=== PATIENT | male | born 1975 | race Hispanic/Latino ===

== ENCOUNTER 2021-08-23 15:51 | Day surgery (SDC) | payer BC ==
[~2021-08-23] VITALS: Ht 165.1 cm; Wt 89.5 kg
[2021-08-23 10:40] VITALS: BP 141/72
[2021-08-23 10:54] LABS: BASOPHILS % (AUTO) 1.4 % (0.0-5.0); EOSINOPHILS % (AUTO) 8.3 % (0.0-8.0); HEMATOCRIT 46.1 % (42-54); LYMPHOCYTES % (AUTO) 27.6 % (21.0-51.0); MEAN CORPUSCULAR HEMOGLOBIN 28.4 pg (27.0-33.0); MEAN CORPUSCULAR HGB CONC 32.1 g/dL (32.0-36.0); MEAN CORPUSCULAR VOLUME 88.3 fL (79-99); MONOCYTES % (AUTO) 14.8 % (3.0-13.0); NEUTROPHILS % (AUTO) 47.4 % (40.0-77.0); PLATELET COUNT (AUTO) 248 K/uL (130-400); RED BLOOD CELL COUNT(AUTO) 5.22 MIL/uL (4.50-6.20); RED CELL DISTRIBUTION WIDTH 11.9 % (11.0-15.5); WHITE BLOOD COUNT (AUTO) 7.4 K/uL (4.8-10.8)
[2021-08-23 10:57] LABS: CREATININE 1.1 mg/dL (0.5-1.5); POTASSIUM 3.9 mmol/L (3.5-5.1)
[~2021-08-23 15:51] MED LIST: CEFAZOLIN SODIUM 1 GM VIAL IVP SCH
[2021-08-26] VITALS (13 sets, daily range): BP systolic 91–126; BP diastolic 54–87
[2021-08-26] MEDS: 0.9%NACL 1000ML 1,000 ML IV SCH ×2 (11:26→15:03)
[2021-08-26] MEDS ORDERED: CEFAZOLIN SODIUM 1 GM VIAL ONE (11:27)
[2021-08-26] MEDS ORDERED: ONDANSETRON 4MG INJ ONE (13:44)
[2021-08-26] MEDS ORDERED: BUPIVACAINE/PF 0.25% 30ML VIAL IJ ONE (13:44)
[2021-08-26] MEDS ORDERED: DEXAMETHASONE SOD PHOSPHATE 10MG/ML 1ML VIAL ONE (13:44)
[2021-08-26] MEDS ORDERED: MIDAZOLAM HCL 1 MG/ML 2ML VIAL ONE (13:44)
[2021-08-26] MEDS ORDERED: NEOSTIGMINE 5MG/5ML SYR IV ONE (13:44)
[2021-08-26] MEDS ORDERED: LIDOCAINE PF 100MG/5ML (2%) SYRINGE 5ML ONE ×2 (13:44→13:45)
[2021-08-26] MEDS ORDERED: ROCURONIUM 10MG/1ML SYR 10 MG/ML ML ONE (13:44)
[2021-08-26] MEDS ORDERED: SUCCINYLCHOLINE CHLORIDE 20 MG/ML 10 ML VIAL ONE ×2 (13:44→13:45)
[2021-08-26] MEDS ORDERED: PROPOFOL 10 MG/ML 20ML VIAL IV ONE ×2 (13:44→14:25)
[2021-08-26] MEDS ORDERED: GLYCOPYRROLATE 1 MG/5 ML SYRINGE ONE (13:44)
[2021-08-26] MEDS ORDERED: FENTANYL CITRATE PF 50 MCG/1 ML 2ML VIAL ONE (13:45)
[2021-08-26] MEDS ORDERED: LIDOCAINE HCL 2% PF 20 ML JEL DISP.SYRIN MM ONE (13:45)
== END 2021-08-26 16:30 | disposition home or self-care (01) ==
LOC: DAH 15:51 → UNDOADMOB 08-26 10:03 → DAHIP 08-26 10:03 → EDSTATUS 08-26 10:50 → DAH 08-26 16:30
PROVIDERS: ATTEND Student in an Organized Health Care Education/Training Program
DX: K60.3 Anal fistula (principal); Z20.822 Contact with and (suspected) exposure to COVID-19; Z82.49 Family history of ischemic heart disease and other diseases of the circulatory system; Z83.3 Family history of diabetes mellitus; Z82.61 Family history of arthritis; Z72.89 Other problems related to lifestyle
CPT/HCPCS: 36415; 46275; 80048; 85025; 87635; A4215; A4221; A4222; A4223; A4344; A4606; A4663; A4930; A6260; J0330 ×2; J0690; J1100; J2001 ×2; J2250; J2405; J2704 ×2; J2710; J3010; J3490 ×2; J7030

== ENCOUNTER → 2021-11-09 | Outpatient (CLI) | payer BC ==
[~2021-11-09] MED LIST changes: -CEFAZOLIN SODIUM 1 GM VIAL IVP SCH; +IOHEXOL-350 75 ML VIAL IV ONE
== END | disposition home or self-care (01) ==
LOC: RAH 10:49
PROVIDERS: ATTEND Student in an Organized Health Care Education/Training Program
DX: R10.2 Pelvic and perineal pain (principal)
CPT/HCPCS: 72193; Q9967